=== PATIENT | male | born 1975 | race Two or more races ===

== ENCOUNTER 2016-04-13 07:06 | Emergency (ER) | payer OTHER | END 2016-04-13 08:00 | disposition home or self-care (01) | LOC: ER 07:06 | PROC: 0XQRXZZ Repair Left Middle Finger, External Approach (ICD-10-PCS; principal; 2016-04-13) | DX: S62.633A Displaced fracture of distal phalanx of left middle finger, initial encounter for closed fracture (principal); S67.193A Crushing injury of left middle finger, initial encounter; W23.0XXA Caught, crushed, jammed, or pinched between moving objects, initial encounter | CPT/HCPCS: 73140-LT; 90714; 99283 ==